=== PATIENT | female | born 1935 | race African-American/Black ===

== ENCOUNTER 2018-09-16 13:03 | Emergency (ER) | payer OTHER, MEDICAID ==
[~2018-09-16] VITALS: Ht 165.1 cm; Wt 61.0 kg
[~2018-09-16 13:03] MED LIST: ALBU05; CALC-961; CLOP75TA4; COR25; FERR-43; GLUC-140; LISI20TA; METF-414; OMEP20CA4; ROSU40TA
[2018-09-16] MEDS ORDERED: ACETAMINOPHEN 500MG TABLET PO ONE (14:00)
[2018-09-16 15:22] VITALS: BP 160/49
== END 2018-09-16 16:22 | disposition home or self-care (01) ==
LOC: ER 13:03
DX: S80.212A Abrasion, left knee, initial encounter (principal); E11.9 Type 2 diabetes mellitus without complications; I10 Essential (primary) hypertension; I48.91 Unspecified atrial fibrillation; Z95.1 Presence of aortocoronary bypass graft; Z98.890 Other specified postprocedural states; Z79.899 Other long term (current) drug therapy; Z88.5 Allergy status to narcotic agent; W18.39XA Other fall on same level, initial encounter; Y93.89 Activity, other specified; Y92.89 Other specified places as the place of occurrence of the external cause; Y99.8 Other external cause status
CPT/HCPCS: 73564; 73590; 99283

== ENCOUNTER 2022-01-26 17:08 | Inpatient (IN) | payer OTHER, MEDICAID ==
[~2022-01-26] VITALS: Ht 160 cm; Wt 64.0 kg
[~2022-01-26 17:08] MED LIST changes: +CLOP-31; -CLOP75TA4
[2022-01-26] MEDS ORDERED: PIPERACILLIN/TAZ 3.375G PREMIX 50 ML IV ONE (18:30)
[2022-01-26] MEDS ORDERED: VANCOMYCIN 1G PREMIX 200 ML IV ONE (18:30)
[2022-01-26 18:31] LABS: CHLORIDE 110 mEq/L (98-107)
[2022-01-26 18:32] LABS: PROTHROMBIN TIME 20.4 sec (9.6-11.0)
[2022-01-26 18:43] LABS: HEMOGLOBIN. 11.3 g/dL (12.0-16.0); MEAN CORPUSCULAR HEMOGLOBIN 25.2 pg (28.0-32.0); MEAN CORPUSCULAR VOLUME 80.5 fL (81.0-99.0); MEAN PLATELET VOLUME 12.2 fl (7.4-10.4); PLATELET 89 x1000/uL (130-400); RED BLOOD CELL COUNT 4.47 mill/uL (4.2-5.4); RED CELL DISTRIBUTION WIDTH 18.4 % (11.6-14.6)
[2022-01-26] MEDS ORDERED: SODIUM CHLORIDE 0.9% 1,000 ML IV ONE (20:00)
[2022-01-26 20:26] LABS: PLATELET ESTIMATE DECREASED
[2022-01-26] MEDS ORDERED: NOREPINEPHRINE 8MG/250ML PMX 250 ML IV ONE (21:15)
[2022-01-26] MEDS ORDERED: SODIUM CHLORIDE 0.9% 500 ML IV ONE (22:00)
[2022-01-26 22:54] VITALS: BP 111/65
[2022-01-26] MEDS ORDERED: IPRATROPIUM/ALBUTEROL 0.5-3(2.5)MG/3ML NEB NEB PRN (23:15)
[2022-01-26] MEDS ORDERED: NOREPINEPHRINE 8 MG in DEXT 5% WATER 242 ML IV PRN (23:15)
[2022-01-26] MEDS ORDERED: DEXT 5%/0.45% NACL 1000ML 1,000 ML IV SCH (23:15)
[2022-01-26] MEDS ORDERED: ONDANSETRON HCL 4MG/2ML INJ IV PRN (23:15)
[2022-01-26] MEDS ORDERED: ACETAMINOPHEN 650MG SUPP PR PRN ×2 (23:15)
[2022-01-26] MEDS ORDERED: DIPHENHYDRAMINE 50MG/ML VIAL IV PRN (23:15)
[2022-01-26] MEDS ORDERED: CALCIUM GLUCONATE 100MG/ML 10ML VIAL IV ONE (23:30)
[2022-01-26] MEDS ORDERED: NOREPINEPHRINE 8MG/250ML PMX 250 ML IV PRN (23:30)
[2022-01-27] MEDS ORDERED: CEFTRIAXONE 1 G PREMIX 50 ML IV NR
[2022-01-27] MEDS ORDERED: PANTOPRAZOLE SODIUM 40 MG/VIAL IV SCH (09:00)
[2022-01-28] MEDS ORDERED: CEFTRIAXONE 1,000 MG in DEXTROSE 5% WATER 50 ML IV SCH ×2
== END 2022-01-27 01:50 | DRG 871 ==
LOC: ER 17:08 → EDBEDREQ 21:33 → CVICU 21:45 → EDBEDREQ 21:47 → EDBEDREQSVC 21:48 → EDBEDREQTM 21:49 → ENRESERV 22:47 → MICUSO 01-27 04:37
PROVIDERS: ADMIT Internal Medicine; ATTEND Internal Medicine
DX: A41.9 Sepsis, unspecified organism (principal); G93.41 Metabolic encephalopathy; R65.21 Severe sepsis with septic shock; N17.9 Acute kidney failure, unspecified; I95.9 Hypotension, unspecified; E87.5 Hyperkalemia; I50.9 Heart failure, unspecified; E11.9 Type 2 diabetes mellitus without complications; I25.10 Atherosclerotic heart disease of native coronary artery without angina pectoris; I48.91 Unspecified atrial fibrillation; I11.0 Hypertensive heart disease with heart failure; E78.00 Pure hypercholesterolemia, unspecified; E86.0 Dehydration; Z66 Do not resuscitate; Z95.1 Presence of aortocoronary bypass graft; Z88.8 Allergy status to other drugs, medicaments and biological substances; Z95.5 Presence of coronary angioplasty implant and graft; K74.60 Unspecified cirrhosis of liver
CPT/HCPCS: 36415; 71045; 74176; 80053; 83605; 84145; 84484; 85025; 93005; 99285; J0610; J0696; J2543; J3370; J3490; J7030; J7040; J7060